=== PATIENT | male | born 1945 | race Caucasian/White ===

== ENCOUNTER 2018-04-14 07:55 | Day surgery (SDC) | payer MEDICARE, BC ==
[2018-04-14 09:00] LABS: INTERNATIONAL RATION (INR) 0.88; PARTIAL THROMBOPLASTIN TIME 24.9 SEC (23.5-35.8); PROTHROMBIN TIME 12.4 SEC (11.4-15.4)
[2018-04-14] MEDS ORDERED: MIDAZOLAM 2 MG/2 ML INJ ONE (09:34)
[2018-04-14] MEDS ORDERED: FENTANYL CITRATE INJ/PF 100 MCG/2 ML AMPUL ONE (09:35)
[2018-04-14 13:37] VITALS: BP 142/83
--- NOTE | 2018-04-14 14:24 | RADIOLOGY REPORT (SQ) ---
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 TECHNIQUE: Fluoroscopic guided lumbar myelogram. Postmyelogram CT. LIMITATIONS: None. PROCEDURE: After written consent and assessment were obtained, the patient was brought into the fluo roscopy room and placed prone on the table. At my direction, 50 mcg of IV fentanyl was given for pain control during the myelogram procedure. Co ntinuous physiologic monitoring of the patient before during and after pain medication by radiology n ursing personnel. No complications post IV pain medication. The patient's lower back was prepped in a sterile fashion and an entry site was selected under live f luoroscopic guidance. The entry site was anesthetized with 1% lidocaine. A 20 gauge 20 cm spinal nee dle was advanced through the skin and into the thecal sac at the left paracentral L1-[address] was injected into the thecal sac. Following the procedure the needle was removed and a sterile ba ndage was placed of the site. Prone cross-table lateral films, erect and semi-erect PA and oblique f luoro images were obtained. CONTRAST: 15 mL Isovue M 200. IMAGES ACQUIRED: Prone cross-table lateral films, erect and semi-erect PA and oblique fluoro images w ere obtained. TECHNIQUE: After performing lumbar myelogram, axial images were acquired through the lumbar spine wi thout intravenous contrast. Images reviewed with lung, soft tissue and bone windows. Reconstructed coronal and sagittal MPR images reviewed. All images stored on PACS. All CT scanners at this facility use dose modulation, iterative reconstruction, and/or weight based d osing when appropriate to reduce radiation dose to as low as reasonably achievable (ALARA). [facility]: Dose Right [facility]: CareDose [facility]: Dose Right [facility]: Teradose 4D [facility]: [employer] FINDINGS: Prone cross-table lateral film demonstrates fusion at the L5-S1 level with transpedicular screws and dorsal fixation plates. 50% anterolisthesis of L5 over S1 is present with ankylosis acros s the disc space. Fluoroscopic lumbar myelogram images: The fluoroscopic images of the lumbar spine demonstrate symmetric filling of the L2, L3, L4 nerve odessa ts without evidence of impingement. There is filling of the proximal L5 nerve root sheaths bilateral ly. Because of the 50% anterolisthesis of L5 over S1, there was limited filling of the sacral spinal canal on the prone and semi-erect oblique images which fills in on the delayed CT images. Postmyelogram CT with sagittal and coronal reconstructions: Postmyelogram CT was performed from the top of T8 through the bottom of S2. At the T8-9 level, a moderate size central disc herniation is present, effacing the ventral thecal sa c and abutting the ventral cord with mild ventral cord flattening. This is best shown on axial image 13/128 and sagittal image 33/59. T9-10, T10-11, T11-12, L1-2 and L2-3 are unremarkable. Conus is at the T12-L1 level. At L3-4, there is advanced bilateral facet arthropathy without significant central or foraminal encro achment. Symmetric filling of the L3 nerve root sleeves. At L4-5, there is some streak artifact from adjacent hardware. No central or foraminal stenosis. Sy mmetric filling of the bilateral L4 nerve roots. L5-S1, patient has 50% anterolisthesis of L5 over S1, old bilateral laminectomy at L5 with transpedic ular spot screws and dorsal fixation plates at L5 and S1. Symmetric filling of the L5 nerve roots bi laterally. Although there is facet arthropathy, no significant foraminal encroachment is present. M ild central stenosis related to the anterolisthesis of L5 over S1. Bulky bony spurring along the aby ateral L5-S1 facet joints. No lucency around the hardware worrisome for loosening. No gross CT evid ence of hardware fracture SI joints are unremarkable. IMPRESSION: T8-9 moderate size central disc herniation with mild central canal narrowing, and mild v entral cord flattening. Prior fusion at L5-S1, with 50% anterolisthesis of L5 over S1. Mild central canal narrowing at L5-S1 . No significant exiting L5 nerve root impingement COMMENT: Patient medication list reviewed: Yes- Quality ID# [id number]:Eligible professional attests to doc umenting in the medical record they obtained, updated, or reviewed the patient's current medications. TECHNICAL DOCUMENTATION: JOB ID: [id number] Quality ID # [id number]: Final reports with documentation of one or more dose reduction techniques (e.g., Au tomated exposure control, adjustment of the mA and/or kV according to patient size, use of iterative reconstruction technique) 2010 [employer]- All Rights Reserved Reading location - IP/workstation name: [email or web address]
--- NOTE | 2018-04-14 14:25 | RADIOLOGY REPORT (SQ) ---
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 TECHNIQUE: Fluoroscopic guided lumbar myelogram. Postmyelogram CT. LIMITATIONS: None. PROCEDURE: After written consent and assessment were obtained, the patient was brought into the fluo roscopy room and placed prone on the table. At my direction, 50 mcg of IV fentanyl was given for pain control during the myelogram procedure. Co ntinuous physiologic monitoring of the patient before during and after pain medication by radiology n ursing personnel. No complications post IV pain medication. The patient's lower back was prepped in a sterile fashion and an entry site was selected under live f luoroscopic guidance. The entry site was anesthetized with 1% lidocaine. A 20 gauge 20 cm spinal nee dle was advanced through the skin and into the thecal sac at the left paracentral L1-[address] was injected into the thecal sac. Following the procedure the needle was removed and a sterile ba ndage was placed of the site. Prone cross-table lateral films, erect and semi-erect PA and oblique f luoro images were obtained. CONTRAST: 15 mL Isovue M 200. IMAGES ACQUIRED: Prone cross-table lateral films, erect and semi-erect PA and oblique fluoro images w ere obtained. TECHNIQUE: After performing lumbar myelogram, axial images were acquired through the lumbar spine wi thout intravenous contrast. Images reviewed with lung, soft tissue and bone windows. Reconstructed coronal and sagittal MPR images reviewed. All images stored on PACS. All CT scanners at this facility use dose modulation, iterative reconstruction, and/or weight based d osing when appropriate to reduce radiation dose to as low as reasonably achievable (ALARA). [facility]: Dose Right [facility]: CareDose [facility]: Dose Right [facility]: Teradose 4D [facility]: [employer] FINDINGS: Prone cross-table lateral film demonstrates fusion at the L5-S1 level with transpedicular screws and dorsal fixation plates. 50% anterolisthesis of L5 over S1 is present with ankylosis acros s the disc space. Fluoroscopic lumbar myelogram images: The fluoroscopic images of the lumbar spine demonstrate symmetric filling of the L2, L3, L4 nerve odessa ts without evidence of impingement. There is filling of the proximal L5 nerve root sheaths bilateral ly. Because of the 50% anterolisthesis of L5 over S1, there was limited filling of the sacral spinal canal on the prone and semi-erect oblique images which fills in on the delayed CT images. Postmyelogram CT with sagittal and coronal reconstructions: Postmyelogram CT was performed from the top of T8 through the bottom of S2. At the T8-9 level, a moderate size central disc herniation is present, effacing the ventral thecal sa c and abutting the ventral cord with mild ventral cord flattening. This is best shown on axial image 13/128 and sagittal image 33/59. T9-10, T10-11, T11-12, L1-2 and L2-3 are unremarkable. Conus is at the T12-L1 level. At L3-4, there is advanced bilateral facet arthropathy without significant central or foraminal encro achment. Symmetric filling of the L3 nerve root sleeves. At L4-5, there is some streak artifact from adjacent hardware. No central or foraminal stenosis. Sy mmetric filling of the bilateral L4 nerve roots. L5-S1, patient has 50% anterolisthesis of L5 over S1, old bilateral laminectomy at L5 with transpedic ular spot screws and dorsal fixation plates at L5 and S1. Symmetric filling of the L5 nerve roots bi laterally. Although there is facet arthropathy, no significant foraminal encroachment is present. M ild central stenosis related to the anterolisthesis of L5 over S1. Bulky bony spurring along the aby ateral L5-S1 facet joints. No lucency around the hardware worrisome for loosening. No gross CT evid ence of hardware fracture SI joints are unremarkable. IMPRESSION: T8-9 moderate size central disc herniation with mild central canal narrowing, and mild v entral cord flattening. Prior fusion at L5-S1, with 50% anterolisthesis of L5 over S1. Mild central canal narrowing at L5-S1 . No significant exiting L5 nerve root impingement COMMENT: Patient medication list reviewed: Yes- Quality ID# [id number]:Eligible professional attests to doc umenting in the medical record they obtained, updated, or reviewed the patient's current medications. TECHNICAL DOCUMENTATION: JOB ID: [id number] Quality ID # [id number]: Final reports with documentation of one or more dose reduction techniques (e.g., Au tomated exposure control, adjustment of the mA and/or kV according to patient size, use of iterative reconstruction technique) 2010 [employer]- All Rights Reserved Reading location - IP/workstation name: [email or web address]
== END 2018-04-14 13:05 | disposition home or self-care (01) ==
LOC: RAD 07:55
PROVIDERS: ATTEND Specialist
DX: M54.16 Radiculopathy, lumbar region (principal); Z79.01 Long term (current) use of anticoagulants; Z79.899 Other long term (current) drug therapy; Z88.0 Allergy status to penicillin
CPT/HCPCS: 36415; 82962; 82947; 85610; 85730; 72265; 72132; J2250; J3010